=== PATIENT | male | born 1940 | race Caucasian/White ===

== ENCOUNTER 2019-04-28 15:18 | Emergency (ER) | payer OTHER ==
[~2019-04-28] VITALS: Ht 172.7 cm; Wt 68.0 kg
[~2019-04-28 15:18] MED LIST: ATENOLOL25 MG; CATAFLAM50 MG PO; DOLOGEN CAPLET1 EACH PO; MEDROL4 MG PO; NABUMETONE750 MG PO; NO RECUERDA; NORVASC5 MG; ORPH100T PO; PERCOCET 5/3251 TAB PO; ULTRACET PO; VASOTEC5 MG
[2019-04-28] MEDS ORDERED: ZOLOFT100 MG (15:36)
== END 2019-04-28 18:39 | disposition home or self-care (01) ==
LOC: ER 15:18
DX: R42 Dizziness and giddiness (principal)

== ENCOUNTER 2020-05-15 09:19 | Outpatient (CLI) | payer OTHER ==
[~2020-05-15 09:19] MED LIST changes: +ZOLOFT100 MG
== END 2020-05-15 09:26 | disposition home or self-care (01) ==
LOC: NUCLEAR 09:19
PROVIDERS: ATTEND Specialist
DX: I50.32 Chronic diastolic (congestive) heart failure (principal)

== ENCOUNTER 2020-09-10 10:58 | Emergency (ER) | payer OTHER ==
[~2020-09-10] VITALS: Ht 172.7 cm; Wt 68.9 kg
[2020-09-10] MEDS ORDERED: SYMBICORT 80/10.2 GM IH (12:29)
== END 2020-09-10 13:02 | disposition home or self-care (01) ==
LOC: ER 10:58
DX: R06.02 Shortness of breath (principal); Z76.0 Encounter for issue of repeat prescription

== ENCOUNTER 2021-07-29 08:53 | Emergency (ER) | payer OTHER ==
[~2021-07-29] VITALS: Ht 167.6 cm; Wt 65.3 kg
[~2021-07-29 08:53] MED LIST changes: +SYMBICORT 80/10.2 GM IH
[2021-07-29] MEDS ORDERED: TAMS0.4C PO (09:12)
[2021-07-29] MEDS ORDERED: SERTRALINE HCL100 MG PO (09:12)
[2021-07-29] MEDS ORDERED: LASIX20 MG PO (09:12)
[2021-07-29] MEDS ORDERED: ZESTRIL5 MG PO (09:13)
[2021-07-29] MEDS ORDERED: AMLODIPINE-OLM1 EAC2 PO (09:13)
== END 2021-07-29 09:45 | disposition home or self-care (01) ==
LOC: ER 08:53
DX: M13.842 Other specified arthritis, left hand (principal); M13.841 Other specified arthritis, right hand

== ENCOUNTER 2021-11-11 16:42 | Emergency (ER) | payer OTHER ==
[~2021-11-11] VITALS: Ht 172.7 cm; Wt 68.0 kg
[~2021-11-11 16:42] MED LIST changes: +AMLODIPINE-OLM1 EAC2 PO; +LASIX20 MG PO; +SERTRALINE HCL100 MG PO; +TAMS0.4C PO; +ZESTRIL5 MG PO
[2021-11-11] MEDS ORDERED: GABAPENTIN300 M2 (17:05)
[2021-11-11] MEDS ORDERED: TYLENOL ARTHRI650 MG PO (19:25)
== END 2021-11-11 19:30 | disposition home or self-care (01) ==
LOC: ER 16:42
DX: M65.9 Synovitis and tenosynovitis, unspecified (principal)

== ENCOUNTER 2021-11-17 09:52 | Emergency (ER) | payer OTHER ==
[~2021-11-17] VITALS: Ht 172.7 cm; Wt 68.0 kg
[~2021-11-17 09:52] MED LIST changes: +GABAPENTIN300 M2; +TYLENOL ARTHRI650 MG PO
== END 2021-11-17 10:55 | disposition home or self-care (01) ==
LOC: ER 09:52
DX: M77.8 Other enthesopathies, not elsewhere classified (principal)

== ENCOUNTER → 2022-06-30 | Emergency (ER) | payer OTHER ==
[~2022-06-30] VITALS: Ht 172.7 cm; Wt 68.0 kg
[~2022-06-30] MED LIST changes: +CIPRO500 MG PO; +[UNRECOGNIZED DRUG - OTHER]; +[UNRECOGNIZED DRUG - REMARK]
== END | disposition home or self-care (01) ==
LOC: ER 10:56
DX: R32 Unspecified urinary incontinence (principal)

== ENCOUNTER 2022-09-26 14:14 | Emergency (ER) | payer OTHER ==
[~2022-09-26] VITALS: Ht 172.7 cm; Wt 68.0 kg
[2022-09-26] MEDS ORDERED: CILOSTAZOL50 MG PO (15:15)
[2022-09-26] MEDS ORDERED: AMLODIPINE BESY10 MG PO (15:15)
[2022-09-26] MEDS ORDERED: FUROSEMIDE20 MG PO (15:15)
[2022-09-26] MEDS ORDERED: GABAPENTIN300 M2 PO (15:15)
[2022-09-26] MEDS ORDERED: LISINOPRIL5 MG PO (15:16)
[2022-09-26] MEDS ORDERED: ST. JOSEPH ASPI81 M2 PO (15:16)
== END 2022-09-26 17:08 | disposition home or self-care (01) ==
LOC: ER 14:14
DX: R42 Dizziness and giddiness (principal); E11.9 Type 2 diabetes mellitus without complications; Z79.84 Long term (current) use of oral hypoglycemic drugs; I10 Essential (primary) hypertension

== ENCOUNTER 2022-12-21 12:02 | Emergency (ER) | payer OTHER ==
[~2022-12-21] VITALS: Ht 167.6 cm; Wt 72.6 kg
[~2022-12-21 12:02] MED LIST changes: +AMLODIPINE BESY10 MG PO; +CILOSTAZOL50 MG PO; +FUROSEMIDE20 MG PO; +GABAPENTIN300 M2 PO; +LISINOPRIL5 MG PO; +ST. JOSEPH ASPI81 M2 PO
== END 2022-12-21 15:47 | disposition home or self-care (01) ==
LOC: ER 12:02
DX: R53.83 Other fatigue (principal); Z20.822 Contact with and (suspected) exposure to COVID-19

== ENCOUNTER 2023-03-10 11:16 | Emergency (ER) | payer OTHER ==
[~2023-03-10] VITALS: Ht 167.6 cm; Wt 54.4 kg
== END 2023-03-10 11:42 | disposition home or self-care (01) ==
LOC: ER 11:16
DX: I10 Essential (primary) hypertension (principal)

== ENCOUNTER 2023-06-25 09:14 | Emergency (ER) | payer OTHER ==
[~2023-06-25] VITALS: Ht 167.6 cm; Wt 74.8 kg
[2023-06-25 11:10] LABS: HEMATOCRIT 42.7 % (39.0-48.0); HEMOGLOBIN 14.1 g/dL (13-16.00); MEAN CELL VOLUME 82.4 fL (80.0-100.00); MEAN CORPUSCULAR HEMOGLOBIN 27.2 pg (27.00-32.0); PLATELET COUNT 178 K/uL (150-450); RED BLOOD COUNT 5.18 M/uL (4.00-6.00); RED CELL DISTRIBUTION WIDTH 14.5 % (11.5-14.5)
[2023-06-25 11:47] LABS: ALBUMIN 3.5 gm/dL (3.4-5.0); BILIRUBIN TOTAL 0.91 mg/dL (0.3-1.2); CREATININE SERUM 0.81 mg/dL (0.70-1.30); GFR 90.78; GLOBULINA 3.3 G/DL (2.4-3.5); POTASSIUM 4.5 mEq/L (3.5-5.1); TOTAL PROTEIN 6.8 gm/dL (6.4-8.2)
[2023-06-25] MEDS ORDERED: OSEL75CA PO (22:38)
== END 2023-06-25 17:32 | disposition left against medical advice (07) ==
LOC: ER 09:14
PROVIDERS: Emergency Medicine
DX: S61.227A Laceration with foreign body of left little finger without damage to nail, initial encounter (principal); W18.39XA Other fall on same level, initial encounter; Y93.89 Activity, other specified; Y92.413 State road as the place of occurrence of the external cause; S09.8XXA Other specified injuries of head, initial encounter; J10.1 Influenza due to other identified influenza virus with other respiratory manifestations; Z20.822 Contact with and (suspected) exposure to COVID-19; S62.347A Nondisplaced fracture of base of fifth metacarpal bone, left hand, initial encounter for closed fracture; I10 Essential (primary) hypertension

== ENCOUNTER 2023-06-25 21:12 | Emergency (ER) | payer OTHER ==
[~2023-06-25] VITALS: Ht 167.6 cm; Wt 81.6 kg
[2023-06-25] MEDS ORDERED: OSEL75CA PO (22:38)
== END 2023-06-26 15:16 | disposition home or self-care (01) ==
LOC: ER 21:12
DX: J10.1 Influenza due to other identified influenza virus with other respiratory manifestations (principal); F03.90 Unspecified dementia, unspecified severity, without behavioral disturbance, psychotic disturbance, mood disturbance, and anxiety; Z20.822 Contact with and (suspected) exposure to COVID-19

== ENCOUNTER → 2023-07-01 | Emergency (ER) | payer OTHER ==
[~2023-07-01] VITALS: Ht 172.7 cm; Wt 68.0 kg
[~2023-07-01] MED LIST changes: +OSEL75CA PO
== END | disposition left against medical advice (07) ==
LOC: ER 15:15
DX: Z53.21 Procedure and treatment not carried out due to patient leaving prior to being seen by health care provider (principal)

== ENCOUNTER → 2023-08-20 | Emergency (ER) | payer OTHER ==
[~2023-08-20] VITALS: Ht 172.7 cm; Wt 63.5 kg
[2023-08-20 18:13] LABS: HEMATOCRIT 46.3 % (39.0-48.0); HEMOGLOBIN 15.3 g/dL (13-16.00); MEAN CELL VOLUME 82.2 fL (80.0-100.00); MEAN CORPUSCULAR HEMOGLOBIN 27.1 pg (27.00-32.0); MEAN CORPUSCULAR HGB CONC 32.9 g/dl (32.0-36.0); PLATELET COUNT 266 K/uL (150-450); RED BLOOD COUNT 5.63 M/uL (4.00-6.00); RED CELL DISTRIBUTION WIDTH 15.2 % (11.5-14.5)
== END | disposition home or self-care (01) ==
LOC: ER 13:15
PROVIDERS: General Practice
DX: J44.1 Chronic obstructive pulmonary disease with (acute) exacerbation (principal)

== ENCOUNTER 2023-08-21 10:36 | Emergency (ER) | payer OTHER ==
[~2023-08-21] VITALS: Ht 167.6 cm; Wt 54.4 kg
== END 2023-08-21 15:59 | disposition left against medical advice (07) ==
LOC: ER
DX: Z53.21 Procedure and treatment not carried out due to patient leaving prior to being seen by health care provider (principal)

== ENCOUNTER 2024-08-20 09:43 | Emergency (ER) | payer OTHER ==
[~2024-08-20] VITALS: Ht 172.7 cm; Wt 68.0 kg
[2024-08-20] MEDS ORDERED: FARXIGA5 MG (10:42)
[2024-08-20] MEDS ORDERED: LISINOPRIL20 MG (10:42)
[2024-08-20] MEDS ORDERED: FAMOtidine 10 MG/ML (4ML VIAL) IV ONE (13:45)
[2024-08-20] MEDS ORDERED: PIPERACILLIN/TAZOBACTAM SODIUM 3.375 GM VIAL IV ONE ×2 (13:45→14:43)
[2024-08-20] MEDS ORDERED: FAMOTIDINE/PF 20 MG/2 ML VIAL ONE (14:44)
[2024-08-20 15:40] LABS: HEMATOCRIT 51.9 % (39.0-48.0); HEMOGLOBIN 17.4 g/dL (13-16.00); MEAN CELL VOLUME 84.4 fL (80.0-100.00); MEAN CORPUSCULAR HEMOGLOBIN 28.3 pg (27.00-32.0); MEAN CORPUSCULAR HGB CONC 33.5 g/dl (32.0-36.0); PLATELET COUNT 284 K/uL (150-450); RED BLOOD COUNT 6.14 M/uL (4.00-6.00); RED CELL DISTRIBUTION WIDTH 14.9 % (11.5-14.5)
[2024-08-20 15:49] LABS: URINE APPEARANCE Clear; URINE BILIRRUBIN Negative (NEGATIVE); URINE BLOOD Negative; URINE COLOR Yellow; URINE KETONE Negative (NEGATIVE); URINE LEUKOCYTE Negative; URINE NITRATE Negative; URINE PROTEIN Negative (NEGATIVE); URINE UROBILINOGEN 0.2 E.U./dl
[2024-08-20 15:51] LABS: URINE BACTERIA 2.4 uL (0.0-1933); URINE EPITHELIAL CELLS 0.4 uL (0.0-38.8); URINE GLUCOSE >=1000 MG/DL (NEGATIVE); URINE RBC 1.3 uL (0.0-20.8); URINE WBC 0.7 uL (0.0-23.2)
[2024-08-20 16:05] LABS: INR 1.1; PARTIAL THROMBOPLASTIN TIME 31.3 SECONDS (22.0-34.0); PROTHROMBIN TIME 11.9 SECONDS (9.0-11.5)
[2024-08-20 16:21] LABS: ALBUMIN 4.3 gm/dL (3.4-5.0); ALKALINE PHOSPHATASE 135 U/L (50-136); ALT/SGPT 11 U/L (12-78); ANION GAP 10 (10.0-20.0); AST/SGOT 22 U/L (15-37); BILIRUBIN TOTAL 1.58 mg/dL (0.3-1.2); BLOOD UREA NITROGEN 16 mg/dL (7-18); BUN CREA RATIO 17 (7.0-25.0); CALCIUM 10.2 mg/dL (8.5-10.1); CARBON DIOXIDE 32 mEq/L (21-32); CHLORIDE 106 mmol/L (98-107); CREATININE SERUM 0.96 mg/dL (0.70-1.30); GFR 74.44; GLOBULINA 3.7 G/DL (2.4-3.5); GLUCOSE FASTING 108 mg/dL (65-100); OSMOLALITY SERUM 287 MOSM/KG (275-295); POTASSIUM 4.84 mEq/L (3.5-5.1); SODIUM 143 mmol/L (136-145)
[2024-08-20 16:32] LABS: C-REACTIVE PROTEIN < 0.29 MG/DL (0.00-0.29)
[2024-08-20 20:15] LABS: ERYTHROCYTE SEDIMENTATION RATE 24 mm/hr
== END 2024-08-20 18:05 | disposition home or self-care (01) ==
LOC: ER 09:43
PROVIDERS: General Practice
DX: R53.81 Other malaise (principal); M95.4 Acquired deformity of chest and rib; Z20.822 Contact with and (suspected) exposure to COVID-19
CPT/HCPCS: 36415; 71046; 71111; 93005; 96365; 99283; J2543; J3490

== ENCOUNTER 2024-10-12 08:57 | Outpatient (CLI) | payer OTHER ==
[~2024-10-12 08:57] MED LIST changes: +FARXIGA5 MG; +LISINOPRIL20 MG
[2024-10-12 10:36] LABS: URINE APPEARANCE Clear; URINE BILIRRUBIN Negative (NEGATIVE); URINE BLOOD Negative; URINE COLOR Dark Yellow; URINE GLUCOSE Negative (NEGATIVE); URINE KETONE Negative (NEGATIVE); URINE LEUKOCYTE Trace; URINE NITRATE Negative; URINE PROTEIN Negative (NEGATIVE)
[2024-10-12 10:37] LABS: URINE EPITHELIAL CELLS 2.8 uL (0.0-38.8); URINE RBC 13.8 uL (0.0-20.8)
[2024-10-12 10:43] LABS: URINE CAST 0.14 uL (0.0-1.40)
== END 2024-10-12 11:07 | disposition home or self-care (01) ==
LOC: LAB 08:57
PROVIDERS: ATTEND Urology
DX: C61 Malignant neoplasm of prostate (principal)

== ENCOUNTER 2025-03-04 09:47 | Outpatient (CLI) | payer OTHER ==
[2025-03-04 11:10] LABS: BASO % 0.7 % (0.1-1.2); EOS # 0.19 (0.04-0.54); EOS % 2.6 % (0.7-7.0); LYMPH # 1.51 (1.18-3.74); LYMPH % 20.7 % (19.3-53.1); MEAN PLATELET VOLUME 12.00 fl (9.4-12.4); MONO # 0.62 (0.24-0.82); MONO % 8.5 % (4.7-12.5); NEUT # 4.89 (1.56-6.13); NEUT % 67.1 % (34.0-71.1); RED CELL DISTRIBUTION WIDTH 13.9 % (11.6-14.4)
[2025-03-04 11:16] LABS: URINE APPEARANCE Clear; URINE BILIRRUBIN Small (NEGATIVE); URINE BLOOD Negative; URINE COLOR Dark Yellow; URINE GLUCOSE Negative (NEGATIVE); URINE KETONE Trace (NEGATIVE); URINE LEUKOCYTE Trace; URINE NITRATE Negative; URINE PROTEIN Trace (NEGATIVE); URINE UROBILINOGEN 1.0 E.U./dl
[2025-03-04 11:20] LABS: URINE BACTERIA 68.3 uL (0.0-1933); URINE EPITHELIAL CELLS 18.2 uL (0.0-38.8); URINE RBC 12.9 uL (0.0-20.8); URINE WBC 10.7 uL (0.0-23.2)
[2025-03-04 11:26] LABS: CREATININE URINE RANDOM 235.0 MG/DL (30-125)
[2025-03-04 11:38] LABS: INR 1.02
[2025-03-04 11:50] LABS: ALT/SGPT 11 U/L (12-78); AST/SGOT 16 U/L (15-37); BILIRUBIN TOTAL 1.10 mg/dL (0.3-1.2); BUN CREA RATIO 19 (7.0-25.0); CHOL HDL RATIO 2.2 (0-5.0); CREATININE SERUM 0.90 mg/dL (0.70-1.30); GFR 80.20; GLOBULINA 2.8 G/DL (2.4-3.5); GLUCOSE FASTING 114 mg/dL (65-100); HDL 68 mg/dl (40-60); LDL 61 mg/dl (0-130); OSMOLALITY SERUM 287 MOSM/KG (275-295); VLDL 22 (0-39)
[2025-03-04 11:53] LABS: PROSTATIC SPECIFIC ANTIGEN < 0.010 NG/ML (0.010-4.00)
[2025-03-04 11:57] LABS: URINE CAST 0.43 uL (0.0-1.40)
== END 2025-03-04 09:56 | disposition home or self-care (01) ==
LOC: LAB 09:47
PROVIDERS: ATTEND Specialist
DX: Z12.11 Encounter for screening for malignant neoplasm of colon (principal); K63.89 Other specified diseases of intestine; E11.21 Type 2 diabetes mellitus with diabetic nephropathy; N39.9 Disorder of urinary system, unspecified; N40.1 Benign prostatic hyperplasia with lower urinary tract symptoms; E78.2 Mixed hyperlipidemia; E11.65 Type 2 diabetes mellitus with hyperglycemia; D64.9 Anemia, unspecified; D68.8 Other specified coagulation defects; N25.81 Secondary hyperparathyroidism of renal origin

== ENCOUNTER 2025-03-31 10:00 | Emergency (ER) | payer OTHER ==
[~2025-03-31] VITALS: Ht 167.6 cm; Wt 56.7 kg
[2025-03-31] MEDS ORDERED: 0.9 % SODIUM CHLORIDE 10 ML IV STA (10:32)
[2025-03-31 10:58] LABS: ABG PH 7.393 (7.35-7.45); ABG PO2 62.2 mmHg (80-100); BICARBONATE 27.0 mmol/l (23-25)
[2025-03-31 11:11] LABS: BASO % 0.0 % (0.1-1.2); EOS # 0.00 (0.04-0.54); EOS % 0.0 % (0.7-7.0); LYMPH # 0.37 (1.18-3.74); LYMPH % 3.6 % (19.3-53.1); MEAN PLATELET VOLUME 10.90 fl (9.4-12.4); MONO # 0.33 (0.24-0.82); MONO % 3.3 % (4.7-12.5); NEUT # 9.36 (1.56-6.13); NEUT % 92.2 % (34.0-71.1); RED CELL DISTRIBUTION WIDTH 14.9 % (11.6-14.4)
[2025-03-31 11:34] LABS: ALT/SGPT 20.0 U/L (12-78); AST/SGOT 26.0 U/L (15-37); BILIRUBIN TOTAL 1.67 mg/dL (0.3-1.2); BUN CREA RATIO 23.0 (7.0-25.0); CREATININE SERUM 1.03 mg/dL (0.70-1.30); GFR 68.63; GLOBULINA 3.1 G/DL (2.4-3.5); GLUCOSE FASTING 171.0 mg/dL (65-100); OSMOLALITY SERUM 289.0 MOSM/KG (275-295)
[2025-03-31 11:42] LABS: o2 21 %
[2025-03-31 13:33] LABS: COVID-19 AG NEGATIVE (NEGATIVE)
[2025-03-31 18:43] LABS: URINE APPEARANCE Clear; URINE BILIRRUBIN Small (NEGATIVE); URINE BLOOD Negative; URINE COLOR Dark Yellow; URINE GLUCOSE Negative (NEGATIVE); URINE KETONE Trace (NEGATIVE); URINE LEUKOCYTE Negative; URINE NITRATE Negative; URINE PROTEIN 30 (NEGATIVE); URINE UROBILINOGEN 1.0 E.U./dl
[2025-03-31 18:47] LABS: URINE BACTERIA 4.7 uL (0.0-1933); URINE CAST 1.46 uL (0.0-1.40); URINE EPITHELIAL CELLS 5.8 uL (0.0-38.8); URINE RBC 8.7 uL (0.0-20.8); URINE WBC 3.2 uL (0.0-23.2)
== END 2025-04-01 02:24 | disposition home or self-care (01) ==
LOC: ER 10:00
PROVIDERS: General Practice
DX: R06.7 Sneezing (principal); Z20.822 Contact with and (suspected) exposure to COVID-19
CPT/HCPCS: 36415; 82803; 96365; 99282; J0696